=== PATIENT | male | born 1970 | race Caucasian/White ===

== ENCOUNTER 2021-12-26 15:17 | Outpatient (CLI) | payer MEDICAID, SELFPAY | END 2021-12-26 15:18 | disposition home or self-care (01) | PROVIDERS: Visit Provider Emergency Medicine Emergency Medical Services | DX: T56.894A Toxic effect of other metals, undetermined, initial encounter (principal); T40.2X4A Poisoning by other opioids, undetermined, initial encounter; Y92.9 Unspecified place or not applicable | CPT/HCPCS: A0425; A0427 ==